=== PATIENT | male | born 1945 ===

== ENCOUNTER → 2019-05-23 | Outpatient (CLI) | payer MEDICARE | END | disposition home or self-care (01) | LOC: LAB SHORT 14:42 → PLD 14:42 | DX: L90.5 Scar conditions and fibrosis of skin (principal) | CPT/HCPCS: 88305 ==

== ENCOUNTER → 2019-10-19 | Outpatient (CLI) | payer MEDICARE | END | disposition home or self-care (01) | LOC: PLD 07:25 → LAB SHORT 07:25 | DX: L57.0 Actinic keratosis (principal) | CPT/HCPCS: 88305 ==

== ENCOUNTER → 2020-04-19 | Outpatient (CLI) | payer MEDICARE | END | disposition home or self-care (01) | LOC: PLD 07:58 → LAB SHORT 07:58 | DX: C44.42 Squamous cell carcinoma of skin of scalp and neck (principal); L57.0 Actinic keratosis | CPT/HCPCS: 88305 ==

== ENCOUNTER → 2020-06-19 | Outpatient (CLI) | payer MEDICARE | END | disposition home or self-care (01) | LOC: PLD 12:34 → LAB SHORT 12:34 | DX: L57.0 Actinic keratosis (principal) | CPT/HCPCS: 88305; 88312 ==

== ENCOUNTER → 2020-10-08 | Outpatient (CLI) | payer MEDICARE | END | disposition home or self-care (01) | LOC: LAB 10:58 → LAB SHORT 10:58 | DX: D04.39 Carcinoma in situ of skin of other parts of face (principal); L57.0 Actinic keratosis | CPT/HCPCS: 88305 ==

== ENCOUNTER → 2021-09-12 | Outpatient (CLI) | payer MEDICARE | END | disposition home or self-care (01) | LOC: LAB SHORT 11:21 | DX: C44.629 Squamous cell carcinoma of skin of left upper limb, including shoulder (principal); D04.61 Carcinoma in situ of skin of right upper limb, including shoulder; D04.62 Carcinoma in situ of skin of left upper limb, including shoulder | CPT/HCPCS: 88305 ==

== ENCOUNTER → 2021-09-26 | Outpatient (CLI) | payer MEDICARE | END | disposition home or self-care (01) | LOC: LAB SHORT 07:41 → PLD 07:41 | DX: C44.629 Squamous cell carcinoma of skin of left upper limb, including shoulder (principal) | CPT/HCPCS: 88305 ==

== ENCOUNTER → 2022-01-14 | Outpatient (CLI) | payer MEDICARE | END | disposition home or self-care (01) | LOC: PLD 07:57 → LAB 07:57 → LAB SHORT 07:57 | DX: D04.39 Carcinoma in situ of skin of other parts of face (principal); L57.0 Actinic keratosis | CPT/HCPCS: 88305 ==

== ENCOUNTER → 2022-04-24 | Outpatient (CLI) | payer MEDICARE | END | disposition home or self-care (01) | LOC: LAB SHORT 15:01 → PLD 15:01 | DX: L57.0 Actinic keratosis (principal) | CPT/HCPCS: 88305 ==

== ENCOUNTER → 2023-01-08 | Outpatient (CLI) | payer MEDICARE | END | disposition home or self-care (01) | LOC: LAB SHORT 11:23 → PLD 11:23 | DX: K13.0 Diseases of lips (principal); L73.8 Other specified follicular disorders | CPT/HCPCS: 88305; 88312 ==

== ENCOUNTER → 2023-03-17 | Outpatient (CLI) | payer MEDICARE | END | disposition home or self-care (01) | LOC: LAB 12:22 → LAB SHORT 12:22 | DX: D04.22 Carcinoma in situ of skin of left ear and external auricular canal (principal); D48.5 Neoplasm of uncertain behavior of skin | CPT/HCPCS: 88305 ==

== ENCOUNTER → 2023-05-04 | Outpatient (CLI) | payer MEDICARE | END | disposition home or self-care (01) | LOC: PLD 12:16 → LAB SHORT 12:16 | DX: L57.0 Actinic keratosis (principal); D48.5 Neoplasm of uncertain behavior of skin | CPT/HCPCS: 88305 ==

== ENCOUNTER → 2023-09-29 | Outpatient (CLI) | payer MEDICARE | LOC: PLD 09:14 → LAB SHORT 09:14 | DX: C44.219 Basal cell carcinoma of skin of left ear and external auricular canal (principal); L57.0 Actinic keratosis | CPT/HCPCS: 88305; 88312 ==